=== PATIENT | female | born 1960 | race Caucasian/White ===

== ENCOUNTER 2020-05-24 17:41 | Emergency (ER) | payer BC ==
[~2020-05-24] VITALS: Ht 162.6 cm; Wt 69.5 kg
[2020-05-24] MEDS ORDERED: ATIVAN1 M1 PO ×2 (17:55)
[2020-05-24] MEDS ORDERED: LOTENSIN40 M1 PO (17:56)
[2020-05-24] MEDS ORDERED: SYNTHROID25 MCG PO (17:57)
[2020-05-24] MEDS ORDERED: CELEXA 20MG20 MG/TA1 PO (17:57)
[2020-05-24 18:45] LABS: POTASSIUM 3.4 mmol/L (3.5-5.1); SODIUM 140 mmol/L (136-145)
[2020-05-24 18:46] LABS: CALCIUM 9.3 mg/dL (8.3-10.5); GLUCOSE 97 mg/dL (65-105)
[2020-05-24 18:48] LABS: CARBON DIOXIDE 21 mmol/L (22-29)
[2020-05-24 18:59] LABS: TROPONIN-I < 0.03 ng/mL (<0.030)
[2020-05-25 00:52] VITALS: BP 164/94
== END 2020-05-25 00:52 | disposition home or self-care (01) ==
LOC: ED 17:41
PROVIDERS: Family Medicine
DX: I10 Essential (primary) hypertension (principal); E87.6 Hypokalemia; E03.9 Hypothyroidism, unspecified; F17.210 Nicotine dependence, cigarettes, uncomplicated; Z79.890 Hormone replacement therapy; Z90.49 Acquired absence of other specified parts of digestive tract; Z90.710 Acquired absence of both cervix and uterus
CPT/HCPCS: J0360; J2060

== ENCOUNTER 2020-05-25 17:45 | Emergency (ER) | payer BC ==
[~2020-05-25] VITALS: Ht 167.6 cm; Wt 68.1 kg
[~2020-05-25 17:45] MED LIST: ATIVAN1 M1 PO; CELEXA 20MG20 MG/TA1 PO; LOTENSIN40 M1 PO; SYNTHROID25 MCG PO
[2020-05-25 17:58] VITALS: BP 146/86
== END 2020-05-25 18:12 | disposition left against medical advice (07) ==
LOC: ED 17:45
DX: R69 Illness, unspecified (principal); Z53.21 Procedure and treatment not carried out due to patient leaving prior to being seen by health care provider